=== PATIENT | female | born 1995 | race Caucasian/White ===

== ENCOUNTER → 2018-02-16 09:54 | Outpatient (CLI) | payer MEDICARE, MEDICAID, SELFPAY ==
[2018-02-16 11:37] LABS: Insulin 44.8 mU/L (2.6-37.6); Vitamin D,25 Hydroxy 22.9 ng/mL (29.95-100.01)
[2018-02-16 11:39] LABS: Free T3 2.9 pg/mL (2.18-3.98); Glucose 95 mg/dL (74-106); T4 Free Direct 1.06 ng/dL (0.76-1.46); Thyroid Stim Hormone (TSH) 2.05 uIU/mL (0.358-3.74)
[2018-02-16 11:43] LABS: Hemoglobin A1c 5.2 % (4.2-6.3)
[2018-02-16 14:02] LABS: Chlamydia Trachomatis by PCR Negative (Negative); Neisserai gonorrhoeae by PCR Negative (Negative); Probe Check PASS; Sample Adequacy Control PASS; Specimen Processing Control PASS
[2018-02-19 20:13] LABS: Thyroid Peroxidase AB 9 IU/mL (0-34)
[2018-02-20 09:45] LABS: Thyroglobulin Antibody < 1.0 IU/mL (0.0-0.9)
== END ==
PROVIDERS: Visit Provider Obstetrics & Gynecology
DX: E03.9 Hypothyroidism, unspecified (principal); R63.5 Abnormal weight gain; Z68.43 Body mass index [BMI] 50.0-59.9, adult
CPT/HCPCS: 36415; 82306; 82947; 83036; 83525; 84439; 84443; 84481; 86376; 86800; 87491; 87591

== ENCOUNTER → 2018-03-12 08:02 | Outpatient (CLI) | payer MEDICARE, MEDICAID, SELFPAY ==
--- NOTE | 2018-03-12 08:06 | US_ITS ---
STUDY: ULTRASOUND TRANSVAGINAL CLINICAL: Female, 22 years old. Pelvic pain. IUD placement. TECHNIQUE: Transvaginal COMPARISON: None. FINDINGS: Normal uterine size measuring 6.7 x 4.4 x 3.2 cm. There are no myometrial masses. Normal endometrial thickness measuring 5 mm and is hyperechoic. There are no endometrial masses, and there is no fluid in the endometrial cavity. Normal uterine cervix. There is an IUD device located inside the endometrial cavity to the far left aspect. Right ovary: Not visualized. Left ovary: Not visualized.. There is no free fluid in the pelvis. US/Pelvic (Non ) IMPRESSION: 1. IUD device located inside the endometrial cavity to the far left aspect. 2. Limited exam due to patient's limited ability to cooperate (mentally delayed). 3. Nonvisualization of both ovaries. Electronically Signed: Xavier Pérez MD at 11:32 EDT , Service support ,
--- NOTE | 2018-03-12 08:32 | US_ITS ---
STUDY: ULTRASOUND TRANSVAGINAL CLINICAL: Female, 22 years old. Pelvic pain. IUD placement. TECHNIQUE: Transvaginal COMPARISON: None. FINDINGS: Normal uterine size measuring 6.7 x 4.4 x 3.2 cm. There are no myometrial masses. Normal endometrial thickness measuring 5 mm and is hyperechoic. There are no endometrial masses, and there is no fluid in the endometrial cavity. Normal uterine cervix. There is an IUD device located inside the endometrial cavity to the far left aspect. Right ovary: Not visualized. Left ovary: Not visualized.. There is no free fluid in the pelvis. US/Transvaginal Non- IMPRESSION: 1. IUD device located inside the endometrial cavity to the far left aspect. 2. Limited exam due to patient's limited ability to cooperate (mentally delayed). 3. Nonvisualization of both ovaries. Electronically Signed: Xavier Pérez MD at 11:32 EDT , Service support ,
== END ==
PROVIDERS: Visit Provider Obstetrics & Gynecology
DX: Z30.431 Encounter for routine checking of intrauterine contraceptive device (principal)
CPT/HCPCS: 76830; 76856

== ENCOUNTER → 2019-01-17 | Outpatient (CLI) | payer MEDICARE, MEDICAID, SELFPAY | END | disposition home or self-care (01) | LOC: LABSPEC 14:50 | PROVIDERS: Visit Provider Obstetrics & Gynecology | DX: N39.0 Urinary tract infection, site not specified (principal) | CPT/HCPCS: 87086; 87088 ==

== ENCOUNTER 2020-05-29 17:58 | Emergency (ER) | payer MEDICARE, MEDICAID, SELFPAY ==
[2020-05-29 17:58] VITALS: BP 137/90; PULSE 85; RESP 18; TEMP 37.1; O2SAT 99; BMI 51.3
--- NOTE | 2020-05-29 18:32 | ED.VIS.GEN ---
History of Present Illness Chief Complaint: Abd Pain Informant: Patient Onset: Days Context: Gradual Onset Current Severity: Moderate Maximum Severity: Moderate Narrative: Patient presents secondary to suprapubic abdominal pain. She states she has had blood in her stool since last Monday, 1 week ago. She states she developed diarrhea on that date. She states blood was bright red initially, transition to dark red and is now black. She complains of lower abdominal pain and points to the suprapubic region. She was seen at [facility] yesterday and had blood work is along with CAT scan. She was given Bentyl along with Bactrim for a UTI. She was told to follow-up. She presents here today because of pain. She is been taking Tylenol as well, last dose being greater than 6 hours ago. She denies fever. Past Medical History - Allergies and Home Meds Allergies/Adverse Reactions: Allergies No Known Allergies Allergy (Verified 05/29/20 17:58) Primary Care Physician: Leisa Eaton FINANCIAL RETIREMENT PLAN SPECIALIST, FINANCIAL RETIREMENT PLAN SPECIALIST-C [Primary Care Provider] - Review of Systems General: Denies: Chills, Fever Eyes: Denies: Visual changes - bilaterally ENT: Denies: Bilateral ear pain Cardiovascular: Denies: Chest pain Respiratory: Denies: Dyspnea, Cough Gastrointestinal: Reports: Abdominal pain, Melena. Denies: Vomiting Genitourinary: Denies: Dysuria Musculoskeletal: Denies: Swelling, Extremity Pain Skin: Denies: Rash Neurological: Denies: Headache Hematologic: Denies: Easy bruising, Easy bleeding Allergy: Denies: Uticaria Physical Exam Vital Signs/Narrative: Vital Signs Temp Pulse Resp BP Pulse Ox 05/29/20 17:58 98.7 F 85 18 137/90 H 99 Inital Vital Signs reviewed: Yes General: Well nourished, Well developed Head: Normocephalic ENT: Moist mucous membranes Neck: Supple Cardiovascular: Regular rate, Regular rhythm Respiratory: No distress, CTA bilaterally Abdomen: Soft, Nontender, Hypoactive bowel sounds Extremities: Nontender Skin: Normal color Neurological: Alert, Oriented x3 Psychological: Normal affect Diagnostic/Tx/Re-eval Laboratory Results 05/29/20 05/29/20 18:32 18:32 WBC 7.1 RBC 5.29 Hgb 14.3 Hct 45.3 MCV 85.6 MCH 27.0 MCHC 31.6 L RDW Std Deviation 43.7 RDW Coeff of Sai 13.9 Plt Count 286 MPV 9.8 Immature Gran % (Auto) 0.400 Neut % (Auto) 60.7 Lymph % (Auto) 30.6 [place] % (Auto) 7.9 Eos % (Auto) 0.0 Baso % (Auto) 0.4 Absolute Neuts (auto) 4.3 Absolute Lymphs (auto) 2.18 Nucleated RBC % 0 Sodium 140 Potassium 4.0 Chloride 112 H Carbon Dioxide 23.0 Anion Gap 5 BUN 11 Creatinine 0.96 Estim Creat Clear Calc 97.72 Est GFR (MDRD) Af Amer 91 Est GFR (MDRD) Non-Af 76 BUN/Creatinine Ratio 11.4 Glucose 98 Calcium 9.1 - Medical Decision Making Patient was given Alvaton here for pain. Patient's visit to [place] from yesterday is reviewed through [facility]. Hemoglobin at that time was 14.4. BUN was normal decreasing likelihood of significant upper GI bleed. CT scan revealed no acute process. Patient be given prescription for 10 tabs of Alvaton to get her through the weekend. She was already given referral numbers for follow-up and possible colonoscopy. ED Disposition - Plan for ED Patient: Disposition: Home or Assisted Living Diagnosis: GI bleed Instructions: ED Upper GI Bleeding (Stable) Prescriptions: Hydrocodone Bitart/Apap 5-325 [Alvaton 5MG-325MG] 1 tablet PO Q6H PRN PRN 3 Days #10 tablet PRN Reason: Pain Referrals: Leisa Eaton FINANCIAL RETIREMENT PLAN SPECIALIST, FINANCIAL RETIREMENT PLAN SPECIALIST-C [Primary Care Provider] - 3-5 Days
[2020-05-29 18:44] LABS: Absolute Lymphocyte Count 2.18 X10^3/uL (0.83-4.51); Absolute Neutrophil Count 4.3 X10^3/uL (2.0-7.7); Basophil# 0.03 X10^3/uL; Basophil% 0.4 % (0-1); Hematocrit 45.3 % (37-47); Hemoglobin 14.3 g/dL (12.0-15.0); Lymphocyte # 2.18 X10^3/ul (4.0); Lymphocyte % 30.6 % (19-41); Mean Corp Hgb Conc 31.6 g/dL (32-36); Mean Corpuscular Volume 85.6 fL (81-99); Mean Platelet Vol. 9.8 fl (6.2-12.0); Monocyte# 0.56 X10^3/uL; Monocyte% 7.9 % (0-10); NRBC Flagged by Analyzer 0 % (0-5); Neutrophil # 4.33 X10^3/uL (2.7-7.7); Neutrophil % 60.7 % (47-70); Platelet Count 286 K/mm3 (150-450); RBC Distribution Width CV 13.9 % (11.6-14.6); RBC Distribution Width SD 43.7 fl (35.1-43.9); Red Blood Count 5.29 M/mm3 (4.2-5.4); White Blood Count 7.1 K/mm3 (4.4-11.0)
[2020-05-29 19:07] LABS: Anion Gap 5 (5-15); BUN 11 mg/dL (7-18); BUN/Creat Ratio 11.4 RATIO (10-20); Calcium,Total 9.1 mg/dL (8.5-10.1); Chloride 112 mmol/L (98-107); Creatinine, Serum 0.96 mg/dL (0.55-1.02); EST Glomerular Filtration Rate 76 mL/min (>60); Est Glom Filt Rate - Afr Amer 91 mL/min (>60); Estimated Creatinine Clearance 97.72 ml/min; Glucose 98 mg/dL (74-106); Sodium Level 140 mmol/L (136-145)
[2020-05-29] MEDS: HYDROcodone Bitartrate/Apap 5/325 Tablet PO (19:15)
[2020-05-29 19:58] VITALS: BP 121/87; PULSE 79; RESP 16; O2SAT 99
== END 2020-05-29 19:58 | disposition home or self-care (01) ==
PROVIDERS: Emergency Provider Emergency Medicine; PCP Nurse Practitioner Family
DX: K92.1 Melena (principal)
CPT/HCPCS: 80048; 85025; 99284; A4216

== ENCOUNTER → 2020-11-06 15:22 | Outpatient (CLI) | payer MEDICARE, MEDICAID, SELFPAY ==
[2020-11-06 16:32] LABS: Color, Urine Yellow (Yellow); Glucose, Dipstick Normal (Normal); Ketone-Dipstick Negative (Negative); Leukocyte Esterase-Dipstick 25 /ul (Negative); Nitrite-Dipstick Negative (Negative); Occult Blood-Urine 10 /ul (Negative); Protein-Dipstick Negative (Negative); Specific Gravity, Urine 1.015 (1.002-1.030); Urine Bilirubin Dipstick Negative (Negative); Urine Clarity Clear (Clear); Urine Urobilinogen 1 mg/dl (Normal)
[2020-11-06 16:37] LABS: Absolute Lymphocyte Count 1.16 X10^3/uL (0.83-4.51); Absolute Neutrophil Count 2.9 X10^3/uL (2.0-7.7); Basophil# 0.03 X10^3/uL; Basophil% 0.6 % (0-1); Eosinophil# 0.01 X10^3/uL; Eosinophils% 0.2 % (0-5); Hematocrit 44.6 % (37-47); Hemoglobin 14.3 g/dL (12.0-15.0); Lymphocyte # 1.16 X10^3/ul (0.83-4.51); Lymphocyte % 23.9 % (19-41); Mean Corp Hgb Conc 32.1 g/dL (32-36); Mean Corpuscular Hgb 27.6 pg (27.0-32.0); Mean Corpuscular Volume 85.9 fL (81-99); Mean Platelet Vol. 10.1 fl (6.2-12.0); Monocyte# 0.73 X10^3/uL; Monocyte% 15.1 % (0-10); NRBC Flagged by Analyzer 0 % (0-5); Neutrophil % 59.8 % (47-70); Platelet Count 246 K/mm3 (150-450); RBC Distribution Width CV 13.5 % (11.6-14.6); RBC Distribution Width SD 42.4 fl (35.1-43.9); Red Blood Count 5.19 M/mm3 (4.2-5.4); White Blood Count 4.9 K/mm3 (4.4-11.0)
[2020-11-06 17:05] LABS: Thyroid Stim Hormone (TSH) 2.64 uIU/mL (0.358-3.74)
[2020-11-09 08:31] LABS: HIV - WCH Non-Reactive (Nonreactive); Hepatitis B Surface Antigen Non-Reactive (Nonreactive); Hepatitis C Antibody Non-Reactive (Nonreactive); Rubella IgG Reactive (Nonreactive); Syphilis Antibodies Non-reactive
[2020-11-09 16:09] LABS: Chlamydia By Nucleic Acid AMP Negative (Negative)
[2020-11-09 16:22] LABS: Gonococcus By Nucleic Acid AMP Negative (Negative)
[2020-11-12 22:39] LABS: HPV APTIMA, High Risk Positive (Negative); HPV Reflexed? YES, CHARGE PATIENT
== END ==
PROVIDERS: PCP Nurse Practitioner Family; Visit Provider Obstetrics & Gynecology
DX: O99.891 Other specified diseases and conditions complicating pregnancy (principal); R73.03 Prediabetes; Z3A.00 Weeks of gestation of pregnancy not specified; Z12.4 Encounter for screening for malignant neoplasm of cervix
CPT/HCPCS: 36415; 81002; 83036; 84443; 85025; 86703; 86762; 86780; 86803; 87340; 87491; 87591; 87624; 88175; G0145

== ENCOUNTER → 2020-12-04 15:30 | Outpatient (CLI) | payer MEDICARE, MEDICAID, SELFPAY ==
[2020-12-04 16:43] LABS: Glucose Challenge Gest 1H 50g 110 mg/dL (70-140); Hematocrit 41.7 % (37-47); Hemoglobin 13.6 g/dL (12.0-15.0); Mean Corp Hgb Conc 32.6 g/dL (32-36); Mean Corpuscular Hgb 27.5 pg (27.0-32.0); Mean Corpuscular Volume 84.2 fL (81-99); Mean Platelet Vol. 9.7 fl (6.2-12.0); Platelet Count 237 K/mm3 (150-450); RBC Distribution Width CV 13.6 % (11.6-14.6); RBC Distribution Width SD 41.8 fl (35.1-43.9); Red Blood Count 4.95 M/mm3 (4.2-5.4); White Blood Count 8.7 K/mm3 (4.4-11.0)
== END ==
PROVIDERS: PCP Nurse Practitioner Family; Visit Provider Obstetrics & Gynecology
DX: Z34.81 Encounter for supervision of other normal pregnancy, first trimester (principal)
CPT/HCPCS: 36415; 82950; 85027

== ENCOUNTER → 2021-02-24 15:32 | Outpatient (CLI) | payer MEDICARE, MEDICAID, SELFPAY ==
[2021-02-24 16:19] LABS: Protein, Urine (Random) < 6.0 mg/dL (<11.9)
[2021-02-24 16:24] LABS: ALB/GLOB Ratio 0.6 RATIO (0.9-2.4); AST(SGOT) 16 U/L (15-37); Alanine Aminotransfer ALT/SGPT 27 U/L (13-56); Albumin, Serum 2.5 g/dL (3.2-5.0); Alkaline Phosphatase 73 U/L (45-117); Anion Gap 6 (5-15); BUN 7 mg/dL (7-18); BUN/Creat Ratio 19.8 RATIO (10-20); Calcium,Total 9.1 mg/dL (8.5-10.1); Chloride 108 mmol/L (98-107); Creatinine, Serum 0.35 mg/dL (0.55-1.02); EST Glomerular Filtration Rate 238 mL/min (>60); Est Glom Filt Rate - Afr Amer 288 mL/min (>60); Globulin 4.3 g/dL (2.2-4.2); Glucose 110 mg/dL (74-106); Potassium 3.9 mmol/L (3.5-5.1); Protein, Total 6.8 g/dL (6.4-8.2); Sodium Level 136 mmol/L (136-145)
== END ==
PROVIDERS: PCP Nurse Practitioner Family; Visit Provider Obstetrics & Gynecology
DX: O10.012 Pre-existing essential hypertension complicating pregnancy, second trimester (principal); Z3A.00 Weeks of gestation of pregnancy not specified
CPT/HCPCS: 36415; 80053; 82570; 84156

== ENCOUNTER → 2021-03-23 14:46 | Outpatient (CLI) | payer MEDICARE, MEDICAID, SELFPAY ==
[2021-03-23 16:03] LABS: Hematocrit 38.6 % (37-47); Hemoglobin 12.4 g/dL (12.0-15.0); Mean Corp Hgb Conc 32.1 g/dL (32-36); Mean Corpuscular Hgb 26.8 pg (27.0-32.0); Mean Corpuscular Volume 83.4 fL (81-99); Mean Platelet Vol. 10.3 fl (6.2-12.0); Platelet Count 262 K/mm3 (150-450); RBC Distribution Width CV 14.8 % (11.6-14.6); RBC Distribution Width SD 44.9 fl (35.1-43.9); Red Blood Count 4.63 M/mm3 (4.2-5.4)
[2021-03-23 16:04] LABS: Scan Indicated on CBC? Y/N NO
[2021-03-23 16:05] LABS: ALB/GLOB Ratio 0.6 RATIO (0.9-2.4); AST(SGOT) 17 U/L (15-37); Alanine Aminotransfer ALT/SGPT 27 U/L (13-56); Albumin, Serum 2.6 g/dL (3.2-5.0); Alkaline Phosphatase 92 U/L (45-117); Anion Gap 7 (5-15); BUN 7 mg/dL (7-18); BUN/Creat Ratio 16.4 RATIO (10-20); Calcium,Total 9.3 mg/dL (8.5-10.1); Chloride 106 mmol/L (98-107); Creatinine, Serum 0.43 mg/dL (0.55-1.02); EST Glomerular Filtration Rate 192 mL/min (>60); Est Glom Filt Rate - Afr Amer 232 mL/min (>60); Globulin 4.5 g/dL (2.2-4.2); Glucose 101 mg/dL (74-106); Glucose Challenge Gest 1H 50g 101 mg/dL (70-140); POSITIVE DIFFERENTIAL NO; Potassium 3.7 mmol/L (3.5-5.1); Protein, Total 7.1 g/dL (6.4-8.2); Protein, Urine (Random) 14.3 mg/dL (<11.9); Protein:Creat Ratio 275 mg/g CRE (0-200); Sodium Level 140 mmol/L (136-145)
[2021-03-23 16:06] LABS: POSITIVE COUNT NO; POSITIVE MORPHOLOGY NO
== END ==
PROVIDERS: PCP Nurse Practitioner Family; Visit Provider Obstetrics & Gynecology
DX: Z34.82 Encounter for supervision of other normal pregnancy, second trimester (principal)
CPT/HCPCS: 36415; 80053; 82570; 82950; 84156; 85027

== ENCOUNTER → 2021-05-18 15:18 | Outpatient (CLI) | payer MEDICARE, MEDICAID, SELFPAY ==
[2021-05-18 15:58] LABS: Hemoglobin 12.3 g/dL (12.0-15.0); Mean Corp Hgb Conc 31.5 g/dL (32-36); Mean Corpuscular Hgb 25.4 pg (27.0-32.0); Mean Corpuscular Volume 80.4 fL (81-99); Platelet Count 235 K/mm3 (150-450); RBC Distribution Width CV 15.6 % (11.6-14.6); RBC Distribution Width SD 45.5 fl (35.1-43.9); Red Blood Count 4.85 M/mm3 (4.2-5.4); White Blood Count 11.7 K/mm3 (4.4-11.0)
[2021-05-18 16:12] LABS: Protein, Urine (Random) 25.8 mg/dL (<11.9); Protein:Creat Ratio 206 mg/g CRE (0-200)
[2021-05-18 16:34] LABS: ALB/GLOB Ratio 0.6 RATIO (0.9-2.4); AST(SGOT) 12 U/L (15-37); Alanine Aminotransfer ALT/SGPT 21 U/L (13-56); Albumin, Serum 2.5 g/dL (3.2-5.0); Alkaline Phosphatase 117 U/L (45-117); Anion Gap 7 (5-15); BUN 6 mg/dL (7-18); BUN/Creat Ratio 15.2 RATIO (10-20); Calcium,Total 8.8 mg/dL (8.5-10.1); Chloride 107 mmol/L (98-107); EST Glomerular Filtration Rate 209 mL/min (>60); Est Glom Filt Rate - Afr Amer 253 mL/min (>60); Globulin 4.3 g/dL (2.2-4.2); Glucose 82 mg/dL (74-106); LDH 123 U/L (84-246); Potassium 4.1 mmol/L (3.5-5.1); Protein, Total 6.8 g/dL (6.4-8.2); Sodium Level 136 mmol/L (136-145); Uric Acid 2.8 mg/dL (2.6-6.0)
[2021-05-19 06:12] LABS: Ferritin 10 ng/mL (8-252)
== END ==
PROVIDERS: PCP Nurse Practitioner Family; Visit Provider Obstetrics & Gynecology
DX: O13.3 Gestational [pregnancy-induced] hypertension without significant proteinuria, third trimester (principal)
CPT/HCPCS: 36415; 80053; 82570; 82728; 83615; 84156; 84550; 85027

== ENCOUNTER → 2021-05-21 13:19 | Outpatient (CLI) | payer MEDICARE, MEDICAID, SELFPAY | PROVIDERS: PCP Nurse Practitioner Family; Visit Provider Obstetrics & Gynecology | DX: Z36.85 Encounter for antenatal screening for Streptococcus B (principal) | CPT/HCPCS: 87081 ==

== ENCOUNTER 2021-06-04 22:15 | Outpatient (CLI) | payer MEDICARE, MEDICAID, SELFPAY ==
[2021-06-04] VITALS (9 sets, daily range): BP systolic 141–148; BP diastolic 70–73; PULSE 84–98; TEMP 36.8; O2SAT 96–98; BMI 54.5
[2021-06-05 00:09] VITALS: PULSE 93; O2SAT 98
[2021-06-05 00:14] VITALS: PULSE 95; O2SAT 97
[2021-06-05 00:18] VITALS: BP 136/98; PULSE 98
[2021-06-05 00:19] VITALS: BP 136/78
[2021-06-05 00:39] VITALS: PULSE 92; O2SAT 97
[2021-06-05 00:42] VITALS: BP 138/73; PULSE 97
--- NOTE | 2021-06-06 09:42 | OB.TRI.NOTE ---
HPI - General HPI Narrative BRANT CONNORS, is a 25 F who presents at 38 weeks 1 day gestation with some contractions and vaginal pain. She is concerned that she might be in labor. care is remarkable for morbid obesity. Maternal Data Information Final BRENDAN: 06/18/21 Final BRENDAN Source: US <20 weeks Gestational age: 38 weeks 1 day gestation PFSH PFSH Home Medications cetirizine 5 mg PO DAILY 06/05/21 [History Last Taken Unknown] inulin [Fiber Gummies] g PO 06/05/21 [History Last Taken Unknown] metformin 500 mg PO BID 06/05/21 [History Last Taken Unknown] prenat vit-iron [id number] [Prena-Cap] cap PO 06/05/21 [History Last Taken Unknown] sertraline [Zoloft] 50 mg PO DAILY 06/05/21 [History Last Taken Unknown] Allergy/AdvReac Type Severity Reaction Status Date / Time No Known Allergies Allergy Verified 06/04/21 22:41 Social History Smoking Status: Never smoker NST FHR Rate Baby A NST Reactive:: Yes FHR Category:: Category I Assessment & Plan (1) False labor, antepartum: PLAN: 38-week 1 day gestation with false labor. No change in cervix after monitoring for 1 to 2 hours. Vaginal pain also diminished. No bleeding. Contractions not seen on monitor. Will discharge to home with routine instructions for labor. Follow-up in the office next week.
== END 2021-06-05 01:10 | disposition home or self-care (01) ==
LOC: WPOUT 22:30 → WP 22:31
PROVIDERS: PCP Nurse Practitioner Family; Visit Provider Obstetrics & Gynecology
DX: O47.1 False labor at or after 37 completed weeks of gestation (principal); Z3A.38 38 weeks gestation of pregnancy
CPT/HCPCS: 59025; 59050; 99218; G0378

== ENCOUNTER 2021-06-15 21:55 | Inpatient (IN) | payer MEDICARE, MEDICAID, SELFPAY ==
[2021-06-15 22:17] VITALS: O2SAT 98
[2021-06-15 22:18] VITALS: BP 142/82; PULSE 88
[2021-06-15 22:33] VITALS: TEMP 36.9
[2021-06-15] MEDS: Lactated Ringers 1,000 ML 50 ML IV (23:00)
[2021-06-15 23:08] VITALS: BMI 53.6
[2021-06-15 23:38] LABS: Absolute Lymphocyte Count 2.65 X10^3/uL (0.83-4.51); Basophil# 0.04 X10^3/uL; Basophil% 0.3 % (0-1); Hematocrit 40.2 % (37-47); Hemoglobin 12.8 g/dL (12.0-15.0); Lymphocyte # 2.65 X10^3/ul (0.83-4.51); Lymphocyte % 16.8 % (19-41); Mean Corp Hgb Conc 31.8 g/dL (32-36); Mean Corpuscular Hgb 25.3 pg (27.0-32.0); Mean Corpuscular Volume 79.6 fL (81-99); Mean Platelet Vol. 10.4 fl (6.2-12.0); Monocyte# 1.05 X10^3/uL; Monocyte% 6.6 % (0-10); NRBC Flagged by Analyzer 0 % (0-5); Neutrophil # 11.95 X10^3/uL (2.7-7.7); Neutrophil % 75.6 % (47-70); Platelet Count 285 K/mm3 (150-450); RBC Distribution Width CV 16.1 % (11.6-14.6); RBC Distribution Width SD 45.4 fl (35.1-43.9); Red Blood Count 5.05 M/mm3 (4.2-5.4); White Blood Count 15.8 K/mm3 (4.4-11.0)
--- NOTE | 2021-06-15 23:56 | PCM.HP.OB ---
HPI - General General Date of Admission: 06/15/21 HPI Narrative BRANT CONNORS, is a 25 F who presents at 39 4/7 weeks gestation. Issues: BMI 54. Limit weight gain Depression, takes Zoloft. EPDS = 10 on 12/04/2020 Epidural planned H/O seizure disorder Insulin resistance, takes Metformin Possible cHTN Maternal Data Information BRENDAN Calculator Estimated Delivery Date Method Current WG Current Estimate 06/18/21 Ultrasound #1 39w 5d PFSH PFSH Medical History (Updated 06/16/21 @ 06:[address] Sindy Rasmussen MD) Depression Obesity affecting Seizure disorder Home Medications cetirizine 5 mg PO DAILY 06/05/21 [History Last Taken 06/14/21] inulin [Fiber Gummies] g PO 06/05/21 [History Last Taken 06/14/21] metformin 500 mg PO BID 06/05/21 [History Last Taken 06/15/21] prenat vit-iron [id number] [Prena-Cap] cap PO 06/05/21 [History Last Taken 06/14/21] sertraline [Zoloft] 50 mg PO DAILY 06/05/21 [History Last Taken 06/15/21] folic acid 20 mg PO DAILY 06/15/21 [History Last Taken 06/15/21] Allergy/AdvReac Type Severity Reaction Status Date / Time No Known Allergies Allergy Verified 06/04/21 22:41 Family History (Updated 06/15/21 @ 18:[address] Sindy Rasmussen MD) Father Diabetes diabetes type 1 Surgical History History of removal of skin mole History of tonsillectomy and adenoidectomy Social History Smoking Status: Never smoker History Elective abortions Hx Para 0 Spontaneous abortions Hx # Term Pregnancies Ectopic pregnancies Hx # Pregnancies Multiple births # of living children Physical Exam Const alert, oriented x3 and no apparent distress HEENT normocephalic Resp normal respiratory effort, normal air movement and clear to auscultation bilaterally Cardio regular rate and regular rhythm GI normal to inspection, nondistended, normoactive bowel sounds, soft to palpation, non-tender and non-distended Inspection: gravid Labs Labs Labs: Blood Type A POSITIVE Antibody Screen Pending Hct 40.2 % (37-47) Hgb 12.8 g/dL (12.0-15.0) Syphilis Total Ab Non-reactive Rubella IgG Antibody Reactive (Nonreactive) Hep Bs Antigen Non-Reactive (Nonreactive) Neisseria gonorrhoeae DNA (KIARA) Negative (Negative) HIV 1&2 Antibody Non-Reactive (Nonreactive) C.trachomatis DNA (PCR) Negative (Negative) Glucose 1 Hr 50 gm 101 mg/dL (70-140) Assessment & Plan (1) 39 weeks gestation of : PLAN: Cytotec (2) Hypertension affecting : PLAN: Well controlled (3) Obesity affecting : COMMENT: BMI 54 prepregnancy
[2021-06-16] VITALS (71 sets, daily range): BP systolic 123–165; BP diastolic 62–109; PULSE 74–108; RESP 16–18; TEMP 35.6–38.7; O2SAT 83–100
[2021-06-16] MEDS: miSOPROStol 25 MCG TABLET PO ×3 (00:08→04:59)
--- NOTE | 2021-06-16 06:19 | PN.OBGYN_ITS ---
Subjective Subjective Reports mild contractions, 210. Objective Data Objective Data Vital Signs: Vital Signs Temp Pulse BP Pulse Ox 98.1 F 81 136/65 H 100 06/16/21 04:13 06/16/21 06:15 06/16/21 05:47 06/16/21 06:15 Weight: 174.633 kg Body Mass Index (BMI) 53.6 Lab / Micro Data Result Diagrams: 06/15/21 23:20 Labs: Laboratory Results - last 24 hr 06/15/21 23:20: WBC 15.8 H, RBC 5.05, Hgb 12.8, Hct 40.2, MCV 79.6 L, MCH 25.3 L , MCHC 31.8 L, RDW Std Deviation 45.4 H, RDW Coeff of Sai 16.1 H, Plt Count 285, MPV 10.4, Immature Gran % (Auto) 0.700, Neut % (Auto) 75.6 H, Lymph % (Auto) 16.8 L, [place] % (Auto) 6.6, Eos % (Auto) 0.0, Baso % (Auto) 0.3, Absolute Neuts (auto) 12.0 H, Absolute Lymphs (auto) 2.65, Nucleated RBC % 0 Micro: Microbiology 06/15/21 22:34 Nasal Secretion SARS-CoV-2 Antigen (Rapid) - Final Physical Exam Narrative GEN - NAD, AAO x 3 FHR 155, minimal variability, no accelerations, + variable deceleration TOCO - difficulty to trace, previously with tachysystole appreciated SVE 2.5/50/-3, moderate and midposition Assessment & Plan (1) Hypertension affecting : QUALIFIERS: Trimester: third trimester Qualified Code(s): O16.3 - Unspecified maternal hypertension, third trimester PLAN: BPs wnl (2) 39 weeks gestation of : PLAN: Amniotomy performed with ISE placement, clear fluid Will reassess (3) Obesity affecting : QUALIFIERS: Trimester: third trimester Qualified Code(s): O99.213 - Obesity complicating , third trimester COMMENT: BMI 54 prepregnancy
[2021-06-16] MEDS: Oxytocin 30 units/NS 500 ml 30 UNITS/500 ML IV.SOLN IV (12:16)
[2021-06-16] MEDS: fentaNYL 100 MCG/2 ML Ampul IV (12:48)
[2021-06-16] MEDS: Lactated Ringers 500 ML 999 ML IV ×2 (13:53→19:41)
[2021-06-16] MEDS: Lactated Ringers 1,000 ML 200 ML IV ×2 (14:46→20:31)
[2021-06-16] MEDS: fentaNYL-bupivacaine (epidural) 100 ML BAG EPIDURAL ×2 (14:48→18:56)
[2021-06-16] MEDS: Dextrose 5%-Lactated Ringers 1,000 ML 150 ML IV (16:28)
[2021-06-16] MEDS: Sodium Citrate/Citric Acid 30 ML UDC PO (20:31)
--- NOTE | 2021-06-16 21:53 | PCM.PN.OB ---
Subjective Subjective Patient progressed to about 6 cm 75% effaced and high station. Unable to start Pitocin due to repetitive late decelerations. Repetitive late decelerations eventually persisted and we discussed treatment options and patient and her family desire that we proceed with section for increasing stress and failure to progress. Temperature also spiking to 101+ degrees Fahrenheit x2. We discussed the risks, benefits, and alternatives of a section including the possibly of bleeding, infection, and injury to surrounding structures such as bowel and bladder and patient desires that we proceed. Objective Data Objective Data Vital Signs: Vital Signs Temp Pulse Resp BP Pulse Ox 100.1 F H 97 16 165/83 H 98 06/16/21 20:33 06/16/21 20:34 06/16/21 20:33 06/16/21 20:33 06/16/21 20:34 Oxygen Delivery Method Room Air Weight: 385 lb Body Mass Index (BMI) 53.6 Intake & Output: Intake and Output for Last 24 Hours 06/14/21 06/15/21 06/16/21 23:59 23:59 23:59 Intake Total 3301.50 / 3301.50 Output Total 100 / 100 Balance 3201.50 / 3201.50 Lab / Micro Data Result Diagrams: 06/15/21 23:20 Labs: Laboratory Results - last 24 hr 06/15/21 23:20: WBC 15.8 H, RBC 5.05, Hgb 12.8, Hct 40.2, MCV 79.6 L, MCH 25.3 L, MCHC 31.8 L, RDW Std Deviation 45.4 H, RDW Coeff of Sai 16.1 H, Plt Count 285, MPV 10.4, Immature Gran % (Auto) 0.700, Neut % (Auto) 75.6 H, Lymph % (Auto) 16.8 L, [place] % (Auto) 6.6, Eos % (Auto) 0.0, Baso % (Auto) 0.3, Absolute Neuts (auto) 12.0 H, Absolute Lymphs (auto) 2.65, Nucleated RBC % 0 06/15/21 23:20: Blood Type A POSITIVE, Antibody Screen NEGATIVE Micro: Microbiology 06/15/21 22:34 Nasal Secretion SARS-CoV-2 Antigen (Rapid) - Final
--- NOTE | 2021-06-16 21:56 | EX.PCM.OBRPT ---
Maternal Data Information BRENDAN Calculator Estimated Delivery Date Method Current WG Current Estimate 06/18/21 Ultrasound #1 39w 5d Details Operative Information Date of Procedure: 06/16/21 Pre-Operative Diagnosis: Increasing Stress, Early Chorioamnionitis, Failure to Progress Post-Operative Diagnosis: Increasing Stress, Early Chorioamnionitis, Failure to Progress Classification: DARCY Procedure Type: low transverse electric locomotive crane operator #1: Hazel Estrada Type of Anesthesia: Epidural Anesthesiologist: Nikunj Munson Antibiotic Given: Ancef 3 grams IV x1 Drain: Guaman to straight drain Estimated Blood Loss: 500 cc Fluids Replaced: Crystalloid Findings Description of Procedure: Surgeon: Rocael Tripp MD, FACOG Procedure: Primary low Transverse Cervical Caesarean Section Findings: Viable male infant with Apgars of 8/9 in occiput anterior presentation with lightly meconium stained amniotic fluid and normal three-vessel placenta. Indication: This is a 25-year-old who presented to labor and delivery for Cytotec induction for hypertension. She progressed to 6 cm and we were unable to administer Pitocin due to repetitive late decelerations. The late decelerations became persistent and given this it was decided to proceed with section. There was also a maternal fever 101 ?F plus just prior to the section and patient had not changed her dilation or station over period of about 4 to 5 hours. care has otherwise been uneventful except for morbid obesity. The patient has been counseled regarding the risk and indications of this procedure including the possibility of bleeding infection and injury to surrounding structures such as bowel bladder. All questions were answered. Procedure: Patient was taken to the operating room where after epidural anesthesia was redosed, the patient was prepped and draped in usual sterile fashion. A Guaman catheter had been previously placed. River Straps were placed on the abdomen. The abdomen was entered through a Pfannenstiel incision and peritoneum was entered bluntly. After developing a bladder flap on the lower uterine segment a low transverse incision was made on the uterus and head was easily delivered onto the operative field the nose mouth and oropharynx were bulb suctioned. Subsequently a viable male was born with Apgars of 8/9. The was noted to cry move all extremities vigorously on the operative field. The umbilical cord was doubly clamped and ligated and handed to the nursery personnel who were present for the delivery. Placenta was delivered and noted to be 3 vessels and normal. Uterus was exteriorized and remaining placental tissue was removed. The uterus was then closed in 2 layers first with running locked 0 Vicryl suture followed by a second imbricating layer with 0 Vicryl suture. 0 Vicryl suture was then used in a horizontal mattress interrupted fashion to affect final hemostasis of the uterine incision line. Normal fallopian tubes and ovaries were visualized and the uterus was returned to the pelvis. Hemostasis was noted and rectus abdominis muscles were reapproximated in the midline with interrupted Number 0 Vicryl suture in a horizontal mattress fashion. Fascia was closed with running Number 1 PDS Strata fix suture. Subcutaneous tissue was irrigated with copious amounts of saline solution and then closed in 2 layers with running 3-0 Vicryl suture. Skin was closed with 4-0 monocryl suture in a running subcuticular fashion. Steri strips and a Mepilex dressing were placed across the incision. The patient tolerated the procedure well and was taken to the recovery room in satisfactory condition. Sponge, needle, and instrument counts were all reportedly correct. EBL was less than 500 cc. Ancef 3 gms IV was given prior to the procedure. Spicemen to Pathology: None Complications: None Presentation: Positive for Vertex Amniotic Fluid Description: Lightly stained meconium Placental Delivery Description: Spontaneous Placenta Disposition: [facility] Cord Vessel Description: 3 Vessels Cord Entanglement: None Cord Gases: ABG and VBG Infant A Gender: Male (1 minute): 8 (5 minute): 9 Complications Risks of Surgery Discussed w/Patient: Bleeding, Infection and Injury to surrounding structure(s) including bowel and bladder Complications: None
[2021-06-16] MEDS: Oxytocin 30 units/NS 500 ml 30 UNITS/500 ML IV.SOLN 167 UNITS IV (23:00)
[2021-06-16] MEDS: Ketorolac 30 MG/ML Syringe IV (23:18)
[2021-06-16] MEDS: Acetaminophen 500 MG Tablet 1000 MG PO (23:18)
[2021-06-16] MEDS: 0.9% Saline Lock 10 ML Syringe IV (23:22)
[2021-06-17] VITALS (12 sets, daily range): BP systolic 112–165; BP diastolic 39–83; PULSE 92–108; RESP 13–20; TEMP 36.3–39.1; O2SAT 95–99
--- NOTE | 2021-06-17 00:55 | NURSING ---
epidural cath d/c'd with blue tip intact. pt tolerated well
[2021-06-17] MEDS: HYDROmorphone 1 MG/ML Syringe IV ×2 (01:16→06:40)
[2021-06-17] MEDS: 0.9% Saline Lock 10 ML Syringe IV ×4 (01:17→22:22)
[2021-06-17] MEDS: Lactated Ringers 1,000 ML 100 ML IV (01:24)
[2021-06-17] MEDS: Ketorolac 30 MG/ML Syringe IV ×3 (05:06→16:45)
[2021-06-17] MEDS: Cefazolin 2 GM in 0.9% Normal Saline 100 ML IV (05:08)
[2021-06-17] MEDS: Acetaminophen 500 MG Tablet 1000 MG PO ×4 (05:08→22:29)
[2021-06-17 05:31] LABS: Bedside Glucose 122 mg/dL (70-110)
[2021-06-17 05:44] LABS: Hematocrit 34.1 % (37-47); Hemoglobin 10.9 g/dL (12.0-15.0); Mean Corpuscular Hgb 25.3 pg (27.0-32.0); Mean Corpuscular Volume 79.3 fL (81-99); Mean Platelet Vol. 10.1 fl (6.2-12.0); Platelet Count 203 K/mm3 (150-450); RBC Distribution Width CV 16.5 % (11.6-14.6); RBC Distribution Width SD 46.4 fl (35.1-43.9)
--- NOTE | 2021-06-17 08:18 | PCM.PN.OB ---
Subjective Subjective No overnight complaints. Objective Data Objective Data Vital Signs: Vital Signs Temp Pulse Resp BP Pulse Ox 98.8 F 108 H 18 126/72 H 97 06/17/21 05:18 06/17/21 05:18 06/17/21 05:18 06/17/21 05:18 06/17/21 05:18 Oxygen Delivery Method Room Air Weight: 385 lb Body Mass Index (BMI) 53.6 Intake & Output: Intake and Output for Last 24 Hours 06/15/21 06/16/21 06/17/21 23:59 23:59 23:59 Intake Total 3946.50 / 3946.50 869 / 869 Output Total 500 / 500 775 / 775 Balance 3446.50 / 3446.50 94 / 94 Lab / Micro Data Result Diagrams: 06/17/21 05:32 Labs: Laboratory Results - last 24 hr 06/17/21 05:20: POC Glucose 122 H 06/17/21 05:32: WBC 24.0 H, RBC 4.30, Hgb 10.9 L, Hct 34.1 L, MCV 79.3 L, MCH 25.3 L, MCHC 32.0, RDW Std Deviation 46.4 H, RDW Coeff of Sai 16.5 H, Plt Count 203, MPV 10.1 Micro: Microbiology 06/15/21 22:34 Nasal Secretion SARS-CoV-2 Antigen (Rapid) - Final Physical Exam Const alert, oriented x3, no apparent distress, average body habitus, healthy appearing and well nourished HEENT normocephalic and moist oral mucous membranes Head and Scalp: atraumatic Face and Sinus: normal facial exam Eyes PERRL Neck full ROM Resp normal respiratory effort, no retractions and no use of accessory muscles GI GI Narrative: Soft, appropriately tender, bandage clean dry and intact Extremity normal to inspection, full ROM and no clubbing, cyanosis or edema Psych mental status grossly normal, affect normal, speech normal and activity/motor behavior normal Assessment & Plan (1) delivery delivered: PLAN: Postop day 1 status post primary section for failure to progress. Suspected chorioamnionitis on Ancef and gentamicin per Dr. Tripp, continue Ancef for 24 hours. Last fever 06/17/2021 at 01:30. chronic hypertension on no meds, continue to monitor. Restarted Zoloft, hold Reglan.
[2021-06-17] MEDS: Enoxaparin 40 MG/0.4 ML Syringe SC (09:36)
[2021-06-17] MEDS: Sertraline 50 MG Tablet PO ×2 (09:36→09:37)
[2021-06-17] MEDS: Senna/Docusate Sodium 1 Tablet PO (09:37)
[2021-06-17] MEDS: oxyCODONE 5 MG Tablet PO ×2 (12:25→23:00)
--- NOTE | 2021-06-17 17:35 | NURSING ---
Pt has required much assistance today with and self care.
[2021-06-17] MEDS: Ibuprofen 600 MG Tablet PO (23:04)
[2021-06-18 00:30] VITALS: BP 128/49; PULSE 90; RESP 18; TEMP 37.9; O2SAT 96
--- NOTE | 2021-06-18 02:01 | NURSING ---
Mother requested formula supplementation at 15:00 on 06/17/21. Huddle form complete
[2021-06-18 04:00] VITALS: BP 116/55; PULSE 76; RESP 18; TEMP 36.9; O2SAT 97
[2021-06-18] MEDS: Acetaminophen 500 MG Tablet 1000 MG PO ×4 (04:45→22:21)
[2021-06-18] MEDS: oxyCODONE 5 MG Tablet PO (05:04)
[2021-06-18] MEDS: Ibuprofen 600 MG Tablet PO ×3 (05:04→18:14)
[2021-06-18] MEDS: 0.9% Saline Lock 10 ML Syringe IV ×6 (06:29→22:35)
[2021-06-18 08:08] VITALS: BP 128/43; PULSE 67; RESP 16; TEMP 36.5
--- NOTE | 2021-06-18 08:35 | PCM.PN.OB ---
Subjective Subjective Post op day 2. Feeling well this morning. Having some gas pains. Otherwise no issues or concerns per patient. Lochia minimal. Working on breast-feeding with RN this morning Objective Data Objective Data Vital Signs: Vital Signs Temp Pulse Resp BP Pulse Ox 98.5 F 76 18 116/55 L 97 06/18/21 04:00 06/18/21 04:00 06/18/21 04:00 06/18/21 04:00 06/18/21 04:00 Oxygen Delivery Method Room Air Weight: 174.633 kg Body Mass Index (BMI) 53.6 Intake & Output: Intake and Output for Last 24 Hours 06/16/21 06/17/21 06/18/21 23:59 23:59 23:59 Intake Total 3946.50 / 3946.50 2049 / 2049 106 / 106 Output Total 500 / 500 1450 / 1450 Balance 3446.50 / 3446.50 599 / 599 106 / 106 Lab / Micro Data Result Diagrams: 06/17/21 05:32 Micro: Microbiology 06/15/21 22:34 Nasal Secretion SARS-CoV-2 Antigen (Rapid) - Final Physical Exam Const alert, oriented x3 and no apparent distress HEENT normocephalic Head and Scalp: atraumatic Neck full ROM Resp normal respiratory effort Cardio regular rate GI normal to inspection, nondistended, normoactive bowel sounds GI Narrative: Uterus 2 cm below umbilicus Dressing clean and dry. Obese. Back/Spine normal ROM Extremity normal to inspection Extremity Narrative: Minimal pedal edema Neuro no focal motor deficits and no sensory deficits noted Psych mental status grossly normal and affect normal Assessment & Plan (1) delivery delivered: PLAN: Postop day 2 status post primary section. Complicated by: 1. Chronic hypertension on no medications, blood pressures stable 2. Prediabetes. Metformin held at this time. Will need follow-up with primary care for management . 3. Chorioamnionitis. Patient had elevated temperature, fever, overnight. Clindamycin was added. This morning added gentamicin again. Patient now on Ancef, clindamycin, gentamicin will continue until 24 hours afebrile. CBC pending this morning. 4. Obesity 5. We will plan to discharge home on 2 weeks of Lovenox 40 mg daily due to class III obesity, postop section, chorioamnionitis. Plan to discharge home tomorrow if afebrile throughout today. (2) Chronic hypertension: (3) Chorioamnionitis: (4) Obesity:
--- NOTE | 2021-06-18 08:41 | DCINST_ITS ---
Discharge Instructions Diet Discharge Diet: No restrictions Activity Discharge Activity: Return to Normal Activity and May Shower May resume sexual activity in: 4-6 weeks Weight Bearing Status: Weight bearing as tolerated Lifting Restrictions: No greater than 25 pounds Dressing / Incision Call your doctor if your incision/area has: Continuous Slow Oozing, Sudden Increased Bleeding, Increased Pain/ Swelling, Increased Redness, Foul Smelling Discharge and Swelling at the incision site Call your doctor if you observe: Fever of 101 or Higher, Change in Color, Inability to urinate, Using more than 1 pad per hour, Shortness of breath, Dizziness, Swelling in the ankles, Chest pain and Calf discomfort Follow Up Care Please Follow Up With: Sindy Mccracken MD When: 1 week blood pressure RN check, 2 week post operative appointment, 6 week Test Results: Test results from this visit will be discussed in further detail at your follow-up appointment, if applicable. Discharge Plan Admission Admit Date/Time: 06/15/21 21:55 Primary Reason for Your Visit: section, delivery Attending Provider: Rocael Tripp Primary Care Provider: Leisa Eaton NP Discharge Orders/Prescriptions Prescriptions: New enoxaparin 40 mg/0.4 mL Syringe 40 mg subcut DAILY 14 Days Qty: 5.6 RF: 0 oxycodone 5 mg Tablet 5 mg PO Q6H PRN (Reason: pain) 4 Days Qty: 16 RF: 0 Continued metformin 500 mg Tablet 500 mg PO BID RF: 0 cetirizine 5 mg Tablet 5 mg PO DAILY RF: 0 sertraline [Zoloft] 50 mg Tablet 50 mg PO DAILY RF: 0 prenat vit-iron [id number] 95-1-50 mg Capsule PO RF: 0 Fiber Gummies 2 gram Tablet,Chewable PO RF: 0 folic acid 20 mg Capsule 20 mg PO DAILY RF: 0 Referrals / Follow Up: Leisa Eaton NP, SOFTWARE ENGINEER DEVELOPER-C [Primary Care Provider] - Disposition Disposition (needs filled in before D/C Order can be placed): Home, Self Care
[2021-06-18 09:02] LABS: Absolute Lymphocyte Count 1.33 X10^3/uL (0.83-4.51); Absolute Neutrophil Count 7.7 X10^3/uL (2.0-7.7); Basophil# 0.04 X10^3/uL; Basophil% 0.4 % (0-1); Eosinophil# 0.01 X10^3/uL; Eosinophils% 0.1 % (0-5); Hematocrit 31.9 % (37-47); Hemoglobin 10.2 g/dL (12.0-15.0); Lymphocyte # 1.33 X10^3/ul (0.83-4.51); Lymphocyte % 13.1 % (19-41); Mean Corpuscular Hgb 25.8 pg (27.0-32.0); Mean Corpuscular Volume 80.6 fL (81-99); Monocyte# 0.92 X10^3/uL; Monocyte% 9.1 % (0-10); NRBC Flagged by Analyzer 0 % (0-5); Neutrophil # 7.72 X10^3/uL (2.7-7.7); Neutrophil % 76.2 % (47-70); Platelet Count 178 K/mm3 (150-450); RBC Distribution Width CV 16.8 % (11.6-14.6); RBC Distribution Width SD 48.7 fl (35.1-43.9); Red Blood Count 3.96 M/mm3 (4.2-5.4); White Blood Count 10.1 K/mm3 (4.4-11.0)
[2021-06-18] MEDS: Senna/Docusate Sodium 1 Tablet PO (10:20)
[2021-06-18] MEDS: Enoxaparin 40 MG/0.4 ML Syringe SC (10:21)
[2021-06-18] MEDS: Sertraline 50 MG Tablet PO (10:21)
[2021-06-18 13:55] VITALS: BP 124/67; PULSE 98; RESP 16; TEMP 36; O2SAT 98
--- NOTE | 2021-06-18 17:30 | NURSING ---
Mother of this patient instructed at bedside how to administer SQ lovenox. Patients mother verbalizes understanding.
[2021-06-18 19:52] VITALS: BP 130/72; PULSE 79; RESP 18; TEMP 36.2; O2SAT 97
[2021-06-18] MEDS: Zolpidem Tartrate 5 MG Tablet PO (22:25)
[2021-06-19] MEDS: Ibuprofen 600 MG Tablet PO ×3 (00:20→10:22)
--- NOTE | 2021-06-19 00:24 | NURSING ---
At 0015 pt called this RN to room. crying upon this RN entering room. Mother states that she needs this RN to get so she can feed him. This RN encouraged patient to get out of bed and get infant herself if able. Pt acknowledges this. RN went to get scheduled medication and when back to room mother in bathroom and remained in the crib, no longer crying. Mother then went over to and carried him over to bed. Mother requested this RN's assistance holding infant while she got into bed. Mother states I know I need to do this myself because I'm going home tomorrow, but can you help me? This RN offered supportive assistance from bedside. Mother appears unsure while handling infant but held and talked to him reassuringly
[2021-06-19] MEDS: 0.9% Saline Lock 10 ML Syringe IV ×2 (03:08→07:06)
[2021-06-19 03:12] VITALS: BP 150/86; PULSE 96; RESP 16; TEMP 35.6; O2SAT 97
[2021-06-19] MEDS: oxyCODONE 5 MG Tablet PO (04:21)
[2021-06-19] MEDS: Acetaminophen 500 MG Tablet 1000 MG PO ×2 (05:09→10:22)
[2021-06-19 05:17] LABS: Absolute Lymphocyte Count 1.62 X10^3/uL (0.83-4.51); Absolute Neutrophil Count 6.1 X10^3/uL (2.0-7.7); Basophil# 0.03 X10^3/uL; Basophil% 0.3 % (0-1); Eosinophil# 0.02 X10^3/uL; Eosinophils% 0.2 % (0-5); Hematocrit 34.1 % (37-47); Hemoglobin 10.6 g/dL (12.0-15.0); Lymphocyte # 1.62 X10^3/ul (0.83-4.51); Lymphocyte % 18.8 % (19-41); Mean Corp Hgb Conc 31.1 g/dL (32-36); Mean Corpuscular Hgb 25.1 pg (27.0-32.0); Mean Corpuscular Volume 80.6 fL (81-99); Mean Platelet Vol. 9.7 fl (6.2-12.0); Monocyte# 0.77 X10^3/uL; NRBC Flagged by Analyzer 0 % (0-5); Neutrophil # 6.07 X10^3/uL (2.7-7.7); Neutrophil % 70.7 % (47-70); Platelet Count 210 K/mm3 (150-450); RBC Distribution Width CV 16.8 % (11.6-14.6); RBC Distribution Width SD 48.6 fl (35.1-43.9); Red Blood Count 4.23 M/mm3 (4.2-5.4); White Blood Count 8.6 K/mm3 (4.4-11.0)
--- NOTE | 2021-06-19 07:24 | NURSING ---
bedside report given to Carlos Carranza RN who is assuming care of pt at this time
[2021-06-19 07:55] VITALS: BP 106/63; PULSE 82; RESP 20; TEMP 37.1
--- NOTE | 2021-06-19 09:08 | PN.OBGYN_ITS ---
Subjective Subjective Postop day 2. Doing well. Pain controlled. Pumping in room to help milk supply, plans to bottlefeed. Lochia minimal. Objective Data Objective Data Vital Signs: Vital Signs Temp Pulse Resp BP Pulse Ox 98.8 F 82 20 H 106/63 97 06/19/21 07:55 06/19/21 07:55 06/19/21 07:55 06/19/21 07:55 06/19/21 03:12 Oxygen Delivery Method Room Air Weight: 174.633 kg Body Mass Index (BMI) 53.6 Intake & Output: Intake and Output for Last 24 Hours 06/17/21 06/18/21 06/19/21 23:59 23:59 23:59 Intake Total 2049 / 2049 706.75 / 706.75 216 / 216 Output Total 1450 / 1450 Balance 599 / 599 706.75 / 706.75 216 / 216 Lab / Micro Data Result Diagrams: 06/19/21 05:05 Labs: Laboratory Results - last 24 hr 06/19/21 05:05: WBC 8.6, RBC 4.23, Hgb 10.6 L, Hct 34.1 L, MCV 80.6 L, MCH 25.1 L, MCHC 31.1 L, RDW Std Deviation 48.6 H, RDW Coeff of Sai 16.8 H, Plt Count 210, MPV 9.7, Immature Gran % (Auto) 1.000 H, Neut % (Auto) 70.7 H, Lymph % (A uto) 18.8 L, Coos % (Auto) 9.0, Eos % (Auto) 0.2, Baso % (Auto) 0.3, Absolute Neuts (auto) 6.1, Absolute Lymphs (auto) 1.62, Nucleated RBC % 0 Micro: Microbiology 06/15/21 22:34 Nasal Secretion SARS-CoV-2 Antigen (Rapid) - Final Physical Exam Const alert, oriented x3 and no apparent distress HEENT normocephalic Head and Scalp: atraumatic Neck full ROM Resp normal respiratory effort Cardio regular rate GI normal to inspection, nondistended, normoactive bowel sounds GI Narrative: Uterus 2 cm below umbilicus. Dressing clean and dry Back/Spine normal ROM Extremity normal to inspection Extremity Narrative: Minimal pedal edema Neuro no focal motor deficits and no sensory deficits noted Psych mental status grossly normal and affect normal Assessment & Plan (1) delivery delivered: PLAN: Postop day 2 status post primary section. Complicated by: 1. Chronic hypertension on no medications, blood pressures stable. BP check 1w. 2. Prediabetes. Metformin held at this time. Will need follow-up with primary care for management . 3. Chorioamnionitis. Afebrile for over 24 hours. Discontinue antibiotics. Leukocytosis resolved. Reviewed signs/symptoms of surgical site infection. Will have 2w incision check scheduled. 4. Obesity, class III 5. We will plan to discharge home on 2 weeks of Lovenox 40 mg daily due to cla ss III obesity, postop section, chorioamnionitis. Home today (2) Obesity: (3) Chorioamnionitis: (4) Chronic hypertension: (5) Other acute postprocedural pain:
--- NOTE | 2021-06-19 09:13 | DS.PCM_ITS ---
Discharge Summary Date of Admission: 06/15/21 Date of Discharge: 06/19/21 Summary: 25-year-old admitted for induction of labor. Patient had section on 06/16/2021. Course was complicated by chorioamnionitis. She was given antibiotics with resolution of fever. Leukocytosis present postoperatively which resolved. Discharged on postoperative day 3. Physical Exam Const alert, oriented x3 and no apparent distress HEENT normocephalic Head and Scalp: atraumatic Neck full ROM Resp normal respiratory effort Cardio regular rate GI normal to inspection, nondistended, normoactive bowel sounds GI Narrative: Uterus 2 cm below umbilicus Back/Spine normal ROM Extremity normal to inspection Extremity Narrative: Minimal pedal edema Neuro no focal motor deficits and no sensory deficits noted Psych mental status grossly normal and affect normal Meaningful Use Info Meaningful Use Diagnoses (Choose all that apply): None applicable Discharge Plan Admission Admit Date/Time: 06/15/21 21:55 Primary Reason for Your Visit: section, delivery Attending Provider: Rocael Tripp Primary Care Provider: Leisa Eaton NP Discharge Orders/Prescriptions Prescriptions: New enoxaparin 40 mg/0.4 mL Syringe 40 mg subcut DAILY 14 Days Qty: 5.6 RF: 0 oxycodone 5 mg Tablet 5 mg PO Q6H PRN (Reason: pain) 4 Days Qty: 16 RF: 0 Continued metformin 500 mg Tablet 500 mg PO BID RF: 0 cetirizine 5 mg Tablet 5 mg PO DAILY RF: 0 sertraline [Zoloft] 50 mg Tablet 50 mg PO DAILY RF: 0 prenat vit-iron [id number] 95-1-50 mg Capsule PO RF: 0 Fiber Gummies 2 gram Tablet,Chewable PO RF: 0 folic acid 20 mg Capsule 20 mg PO DAILY RF: 0 Referrals / Follow Up: Leisa Eaton NP, SHIPPING AND RECEIVING SUPERVISOR[employer] [Primary Care Provider] - Disposition Disposition (needs filled in before D/C Order can be placed): Home, Self Care
[2021-06-19] MEDS: Enoxaparin 40 MG/0.4 ML Syringe SC (10:21)
[2021-06-19] MEDS: Senna/Docusate Sodium 1 Tablet PO (10:21)
[2021-06-19] MEDS: Sertraline 50 MG Tablet PO (10:22)
--- NOTE | 2021-06-19 10:48 | NURSING ---
Home Lovenox teaching completed with patient and significant other.
--- NOTE | 2021-06-19 10:55 | NURSING ---
Talked with Jing Flood - contact made through [facility] as instructed to call if pt. was going to be discharged today regarding a safety plan. September reported she would talk to the person who came and talked with Chetna last night and call back. September returned phone call and reported that they are ok with the pt. being discharged to home, but need to know date and time of follow-up appt. Reports will need to see them in their home to evaluate and see how to proceed. Will call back with date/time of follow-up. Tosha in updated on this, will update her with date/time of follow-up and she will notify September.
[2021-06-19 13:00] VITALS: BP 127/43; PULSE 89; RESP 18; TEMP 36.6
--- NOTE | 2021-06-19 13:29 | NURSING ---
Return phone call from September with [facility] - plan to go to house today once they are home, wanting to know planned d/c time. Reported date of 06/21 at 9am for follow-up appt., but pt. unable to remember provider they will be seeing at [facility] [place]. Pt. and SO working on packing car up/getting infant into car seat and then will be ready for d/c. Tosha in updated on this plan as well. Leaving without safety plan as [facility] plans to evaluate once seen and go from there. Tosha in aware of this plan as well.
--- NOTE | 2021-06-19 19:30 | CM.ED ---
BONITA Hernandez, charge weigher from , called this machine sign writer. She said that patient had been referred to [facility]. Chris will page sap basis consultantquarry worker for [facility]. Per Chris, [facility] had met with patient last night. Chris said that [facility] wants to know nb's follow up appointment and also where the nb will go. BONITA spoke to Mary and she said that nb has appointment at [facility] on Monday at 9am (name of tool and die manager unknown by parents). Mary will update [facility] worker, September, about appointment. BONITA called and spoke to Chris for update regarding patient and nb. Mary said that she had spoken to sap basis consultantquarry worker, September, and September said that there is no current safety plan but they will meet patient at her house today. Mary said that per [facility] worker September patient can be discharged and she documented this in the chart. Plan: Home with nb Tosha ELIZALDE
--- NOTE | 2021-06-23 17:20 | NURSING ---
no answer on follow up phone call, left voicemail
== END 2021-06-19 13:30 | disposition home or self-care (01) | DRG 786 ==
PROVIDERS: Student in an Organized Health Care Education/Training Program; Admitting Provider Obstetrics & Gynecology; PCP Nurse Practitioner Family; Visit Provider Obstetrics & Gynecology
DX: O10.92 Unspecified pre-existing hypertension complicating childbirth (principal); O41.1230 Chorioamnionitis, third trimester, not applicable or unspecified; O99.214 Obesity complicating childbirth; E88.81 Metabolic syndrome and other insulin resistance; E66.01 Morbid (severe) obesity due to excess calories; R73.03 Prediabetes; O76 Abnormality in fetal heart rate and rhythm complicating labor and delivery; O77.0 Labor and delivery complicated by meconium in amniotic fluid; Z3A.39 39 weeks gestation of pregnancy; O99.344 Other mental disorders complicating childbirth; F32.A Depression, unspecified; Z37.0 Single live birth; Z86.69 Personal history of other diseases of the nervous system and sense organs; O26.893 Other specified pregnancy related conditions, third trimester; Z79.84 Long term (current) use of oral hypoglycemic drugs; Z20.822 Contact with and (suspected) exposure to COVID-19
CPT/HCPCS: 59025; 59050; 82962; 85025; 85027; 86850; 86900; 86901; 87426; 99218; J7120; A4216; G0378; J2405

== ENCOUNTER 2021-06-22 14:27 | Outpatient (CLI) | payer MEDICARE, SELFPAY | END 2021-06-22 23:59 | disposition short-term general hospital (02) | LOC: WOBLAB 14:29 | PROVIDERS: PCP Nurse Practitioner Family; Visit Provider Obstetrics & Gynecology | DX: N39.0 Urinary tract infection, site not specified (principal) | CPT/HCPCS: 87077; 87086; 87088; 87186 ==

== ENCOUNTER → 2022-02-24 | Outpatient (CLI) | payer MEDICARE, MEDICAID, SELFPAY ==
[2022-03-10 13:45] LABS: HPV Reflexed? NOT INDICATED
== END | disposition home or self-care (01) ==
PROVIDERS: PCP Nurse Practitioner Family; Visit Provider Student in an Organized Health Care Education/Training Program
DX: Z12.4 Encounter for screening for malignant neoplasm of cervix (principal)
CPT/HCPCS: 88175; G0145